=== PATIENT | male | born 1995 | race Caucasian/White ===

== ENCOUNTER 2017-07-18 08:07 | Emergency (ER) | payer BC ==
--- NOTE | 2017-07-18 08:19 | EDM.PDOC ---
ED HPI GENERAL MEDICAL PROBLEM - General Chief Complaint: ENT Problem Stated Complaint: Sore Throat; Fever; Cough Time Seen by Provider: 07/18/17 08:17 Source of Information: Reports: Patient, RN, RN Notes Reviewed History Limitations: Reports: No Limitations - History of Present Illness INITIAL COMMENTS - FREE TEXT/NARRATIVE: Patient presents the emergency room at [facility] complaining of a 2 day history of sore throat, cough, and fevers. The patient states that he is trying to stay well-hydrated with good by mouth fluid intake. The patient denies any eye or ear symptomatology. The patient denies any chest pain. The patient denies any shortness of breath. The patient states he has been exposed to other illnesses. The patient has not tried any [id number] cold or flu medications. The patient denies any nausea vomiting or diarrhea. Onset Date: 07/16/17 Headache Pain Score (Numeric/FACES): 6 - Related Data Allergies Allergy/AdvReac Type Severity Reaction Status Date / Time No Known Allergies Allergy Verified 07/18/17 08:35 Home Meds: Home Meds Oseltamivir Phosphate 1 cap PO BID 4 Days #8 capsule 07/18/17 [Rx] ED ROS ENT - Review of Systems Review Of Systems: See Below Constitutional: Reports: Fever, Chills. Denies: Weakness HEENT: Reports: Throat Pain, Throat Swelling. Denies: Ear Pain, Eye Discharge, Rhinitis, Sinus Problem Respiratory: Reports: Cough, Sputum. Denies: Shortness of Breath Cardiovascular: Denies: Chest Pain, Palpitations GI/Abdominal: Denies: Abdominal Pain, Nausea, Vomiting Skin: Reports: No Symptoms Neurological: Reports: No Symptoms ED EXAM, ENT - Physical Exam Exam: See Below Exam Limited By: No Limitations General Appearance: Alert, No Apparent Distress, Obese Eye Exam: Bilateral Eye: Normal Inspection, PERRL Ears: Normal External Exam, Normal Canal, Normal TMs Nose: Normal Inspection Mouth/Throat: Dry Mucous Membrane, Pharyngeal Erythema, Throat Pain, Throat Swelling, Other (Pharyngeal exudates; foul odor to breath) Neck: Supple Respiratory/Chest: No Respiratory Distress, Lungs Clear, Normal Breath Sounds Cardiovascular: Normal Peripheral Pulses, Regular Rate, Rhythm GI/Abdominal: Normal Bowel Sounds, Soft, Non-Tender Neurological: Alert, Oriented Skin: Warm, Dry, Intact, Normal Color, No Rash Course - Vital Signs Last Recorded V/S: Last Vital Signs Temp 38.4 C H 07/18/17 08:10 Pulse 130 H 07/18/17 08:10 Resp 20 07/18/17 08:10 BP 121/99 H 07/18/17 08:10 Pulse Ox - Orders/Labs/Meds Orders: Active Orders 24 hr Category Date Time Status BASIC METABOLIC PANEL,BMP [CHEM] Stat Lab 07/18/17 08:52 Received CBC WITH AUTO DIFF [HEME] Stat Lab 07/18/17 08:52 Results CULTURE STREP A CONFIRMATION [RM] Stat Lab 07/18/17 08:17 Results MANUAL DIFFERENTIAL QA/NC [HEME] Stat Lab 07/18/17 08:52 Results STREP SCRN A RAPID W CULT CONF [RM] Stat Lab 07/18/17 08:17 Results Labs: Laboratory Tests 07/18/17 Range/Units 08:52 WBC 7.1 (4.0-10.0) x10^3/uL RBC 5.58 (4.5-6.0) x10^6/uL Hgb 15.8 (14.0-18.0) g/dL Hct 47.6 (40.0-52.0) % MCV 85.3 (78.0-93.0) fL MCH 28.3 (26.0-32.0) pg MCHC 33.2 (32.0-36.0) g/dL RDW Coeff of Aravind 13.3 (10.0-15.0) % Plt Count 159 (130-400) x10^3/uL Add Manual Diff Yes Departure - Departure Time of Disposition: 09:09 Disposition: Home, Self-Care 01 Condition: Good Clinical Impression: Influenza A Fever Qualifiers: Fever type: unspecified Qualified Code(s): R50.9 - Fever, unspecified - Discharge Information Prescriptions: Oseltamivir Phosphate 1 cap PO BID 4 Days #8 capsule Instructions: Influenza, Adult, [id number], Fever, Adult, [id number] Referrals: Lena Quiroz DO [Primary Care Provider] - Forms: ED Department Discharge Additional Instructions: 1. Stay well hydrated and rest 2. COVER your cough 3. May return to work when fevers is gone 4. Take medication for the full coarse, even if you are feeling better 5. Wash hands frequently 6. May alternate Tylenol/Advil as needed for fever/pain 7. See your Primary as symptoms warrant 8. Call with any questions/concerns - Problem List Review Problem List Initiated/Reviewed/Updated: Yes - My Orders Last 24 Hours: My Active Orders 07/18/17 08:17 CULTURE STREP A CONFIRMATION [RM] Stat STREP SCRN A RAPID W CULT CONF [RM] Stat 07/18/17 08:52 BASIC METABOLIC PANEL,BMP [CHEM] Stat CBC WITH AUTO DIFF [HEME] Stat MANUAL DIFFERENTIAL QA/NC [HEME] Stat - Assessment/Plan Last 24 Hours: My Active Orders 07/18/17 08:17 CULTURE STREP A CONFIRMATION [RM] Stat STREP SCRN A RAPID W CULT CONF [RM] Stat 07/18/17 08:52 BASIC METABOLIC PANEL,BMP [CHEM] Stat CBC WITH AUTO DIFF [HEME] Stat MANUAL DIFFERENTIAL QA/NC [HEME] Stat
[2017-07-18 09:12] LABS: CHLORIDE,CL 103 mmol/L (98-107); SODIUM,NA 140 mmol/L (136-145)
[2017-07-18] MEDS ORDERED: Take Home: Oseltamivir 75 MG Cap, 2 Cap Pack PO ONE (09:12)
== END 2017-07-18 09:30 | disposition home or self-care (01) ==
LOC: VM.ED 08:07
DX: J10.1 Influenza due to other identified influenza virus with other respiratory manifestations (principal)
CPT/HCPCS: 36415; 80048; 85025; 87081; 87804; 87880; 99283; A9270-GY